=== PATIENT | male | born 1955 | race Caucasian/White ===

== ENCOUNTER 2023-08-17 16:00 | Outpatient (CLI) | payer MEDICARE | END 2023-08-17 16:01 | disposition home or self-care (01) | LOC: SLEEPLAB 16:00 | PROVIDERS: ATTEND Nurse Practitioner Family | DX: G47.33 Obstructive sleep apnea (adult) (pediatric) (principal); I10 Essential (primary) hypertension; R06.83 Snoring; E66.9 Obesity, unspecified; Z68.36 Body mass index [BMI] 36.0-36.9, adult | CPT/HCPCS: 95811 ==